=== PATIENT | female | born 1995 | race Two or more races ===

== ENCOUNTER 2022-03-08 12:34 | Emergency (ER) | payer SELFPAY ==
[~2022-03-08] VITALS: Ht 160 cm; Wt 47.0 kg
[2022-03-08 14:20] LABS: Urine Bacteria FEW /hpf (None Seen); Urine Blood 1+ /uL (Negative); Urine Specific Gravity 1.004 (1.001-1.035); Urine WBC 3 /hpf (0 - 5)
[2022-03-08] MEDS ORDERED: KETOROLAC TROMETH 60MG/2ML VIAL IM ONE (14:45)
[2022-03-08 16:01] LABS: Basophils # (auto) 0 10 ^3/uL (0-0.2); Basophils % (auto) 0.2 % (0.0-2.0); Eosinophils # (auto) 0 10 ^3/uL (0-0.8); Eosinophils % (auto) 0.2 % (0.0-7.0); Hematocrit 38.8 % (36.0-46.0); Hemoglobin 12.9 g/dL (12.2-16.2); Lymphocytes # (auto) 1.5 10 ^3/uL (0.4-5.4); Lymphocytes % (auto) 10.9 % (10.0-50.0); Mean Corpuscular Hemoglobin 30.5 pg (28.0-32.0); Mean Corpuscular Hgb Conc. 33.2 g/dL (32.0-36.0); Mean Corpuscular Volume 91.8 fL (80.0-100.0); Monocytes # (auto) 1.6 10 ^3/uL (0-1.3); Monocytes % (auto) 11.9 % (0.0-12.0); Neutrophils # (auto) 10.4 10 ^3/uL (1.6-8.6); Neutrophils % (auto) 76.8 % (37.0-80.0); Red Blood Cells 4.22 10^6/uL (4.0-5.20); Red Cell Distribution Width 12.9 % (11.8-14.3); White Blood Cell 13.5 10^3/uL (4.4-10.8)
[2022-03-08 16:15] LABS: BUN/Creatinine Ratio 17.2; Calcium 8.7 mg/dL (8.5-10.1); Potassium 3.3 mmol/L (3.5-5.1)
[2022-03-08] MEDS ORDERED: ACET-1080 PO (16:31)
[2022-03-08 16:33] VITALS: BP 119/87
== END 2022-03-08 16:37 | disposition home or self-care (01) ==
LOC: ER 12:34
DX: Q61.3 Polycystic kidney, unspecified (principal); M54.59 Other low back pain
CPT/HCPCS: 36415; 76775; 80048; 81001; 81025; 85025; 96372; 99284; J1885